=== PATIENT | female | born 1950 | race Caucasian/White ===

== ENCOUNTER 2024-01-12 20:16 | Emergency (ER) | payer MEDICARE, BC ==
[~2024-01-12] VITALS: Ht 154.9 cm; Wt 52.5 kg
[2024-01-12 20:49] LABS: BASOPHILS # (AUTO) 0.1 X10'3 (0-0.2); BASOPHILS % (AUTO) 1.2 % (0-1); EOSINOPHILS # (AUTO) 0.1 X10'3 (0-0.9); HEMATOCRIT 36.7 % (35.0-45.0); LYMPHOCYTES # (AUTO) 2.5 X10'3 (1.1-4.8); LYMPHOCYTES % (AUTO) 41.3 % (21-51); MEAN CORPUSCULAR HEMOGLOBIN 28.2 PG (27.0-31.0); MEAN CORPUSCULAR HGB CONC 32.8 g/dL (33.0-36.5); MEAN CORPUSCULAR VOLUME 86.1 FL (78-98); MEAN PLATELET VOLUME 7.7 FL (7.4-10.4); MONOCYTES # (AUTO) 0.4 X10'3 (0-0.9); MONOCYTES % (AUTO) 6.8 % (2-12); NEUTROPHILS # (AUTO) 2.9 X10'3 (1.8-7.7); NEUTROPHILS % (AUTO) 48.7 % (42-75); PLATELET COUNT 194 X10'3 (140-440); RED BLOOD COUNT 4.26 X10'6 (4.20-5.60); RED CELL DISTRIBUTION WIDTH 14.7 % (11.5-14.5)
[2024-01-12 21:02] LABS: ALANINE AMINOTRANSFERASE 24 U/L (12-78); ALBUMIN 3.8 G/DL (3.4-5.0); ALBUMIN/GLOBULIN RATIO 1.2 (1.1-1.5); ALKALINE PHOSPHATASE 49 IU/L (46-116); ANION GAP 11 (8-16); ASPARTATE AMINO TRANSFERASE 13 U/L (10-37); BILIRUBIN,TOTAL 0.3 MG/DL (0.1-1.0); BLOOD UREA NITROGEN 27 MG/DL (7-18); BUN/CREATININE RATIO 35.1 (10.0-20.0); CALCIUM 9.5 MG/DL (8.5-10.1); CHLORIDE 108 MMOL/L (99-107); CREATININE 0.77 MG/DL (0.40-0.90); POTASSIUM 3.6 MMOL/L (3.5-5.1); SODIUM 141 MMOL/L (135-145); TOTAL CARBON DIOXIDE 21.6 MMOL/L (24-32); TOTAL PROTEIN 7.1 G/DL (6.4-8.2); eCRCL 48 ML/MIN; eGFR 73 ML/MIN
[2024-01-12 21:09] LABS: PRO BRAIN NATRIURETIC PEPTIDE 93 PG/ML (0-125)
[2024-01-12 21:31] LABS: GLUCOSE 122 MG/DL (70-104)
[2024-01-13 01:14] VITALS: PULSE 85; RESP 16; O2SAT 97
[2024-01-13] MEDS: ipratropium/albuterol 3ml nebule NEB ONE (01:14)
[2024-01-13 01:20] VITALS: PULSE 83; RESP 16
[2024-01-13] MEDS: ketorolac trometh 30MG/ML vial 30 MG/ML VIAL IV ONE (01:55)
[2024-01-13] MEDS: morphine 2 MG/ML inj. syringe IV ONE (01:57)
[2024-01-13 06:09] VITALS: TEMP 97.6
[2024-01-13 11:00] VITALS: BP 137/76; PULSE 78; RESP 16; O2SAT 96
== END 2024-01-13 03:30 | disposition home or self-care (01) ==
LOC: ER 20:17
DX: R07.9 Chest pain, unspecified (principal); J44.9 Chronic obstructive pulmonary disease, unspecified; Z88.0 Allergy status to penicillin; Z88.8 Allergy status to other drugs, medicaments and biological substances
CPT/HCPCS: 36415; 71045; 80053; 83880; 84484; 85025; 93005; 94640; 96374; 99285; J1885; Z7610; 94760

== ENCOUNTER 2024-03-25 09:16 | Outpatient (CLI) | payer MEDICARE, BC ==
[~2024-03-25] VITALS: Ht 154.9 cm; Wt 50.0 kg
[2024-03-25] VITALS (7 sets, daily range): BP systolic 117–143; BP diastolic 49–74; PULSE 77–101; RESP 18–22; O2SAT 98
[2024-03-25] MEDS ORDERED: aminophylline inj. 0 ML IV ONE (10:10)
[2024-03-25] MEDS: regadenoson 0.4mg/5ml syringe IV ONE (10:12)
== END 2024-03-25 23:59 | disposition home or self-care (01) ==
LOC: NM 09:16
PROVIDERS: ATTEND Student in an Organized Health Care Education/Training Program
DX: I25.110 Atherosclerotic heart disease of native coronary artery with unstable angina pectoris (principal)
CPT/HCPCS: 78452; 93017; A9500; J2785; J0280